=== PATIENT | female | born 1985 | race Caucasian/White ===

== ENCOUNTER 2017-12-07 20:20 | Emergency (ER) | payer MEDICAID | END 2017-12-07 21:09 | disposition home or self-care (01) | LOC: FTE 20:20 | DX: J00 Acute nasopharyngitis [common cold] (principal) | CPT/HCPCS: 99283; Z7502 ==

== ENCOUNTER 2017-12-28 12:41 | Emergency (ER) | payer MEDICAID ==
[2017-12-28] MEDS: SOD CHLORIDE 0.9% 1,000 ML IV (15:46)
[2017-12-28] MEDS: ACETAMINOPHEN 325 MG TAB PO (15:46)
[2017-12-28] MEDS: METOCLOPRAMIDE 10 MG INJ IV (15:46)
[2017-12-28 16:07] LABS: ADD MAN DIFF? NO
[2017-12-28 16:14] LABS: WHITE BLOOD COUNT 8.3 10^3/ul (4.8-10.8)
[2017-12-28 16:14] LABS: BASOPHILS % 0.2 % (0.0-2.0); EOSINOPHILS # 0.1 10^3/ul (0.0-0.5); EOSINOPHILS % 1.2 % (0.0-7.0); HEMATOCRIT 37.1 % (37.0-47.0); HEMOGLOBIN 11.4 g/dl (12.0-16.0); LYMPHOCYTES # 1.4 10^3/ul (0.8-2.9); LYMPHOCYTES % 16.3 % (15.0-51.0); MEAN CORPUSCULAR HEMOGLOBIN 24.5 pg (29.0-33.0); MEAN CORPUSCULAR HGB CONC 30.7 g/dl (32.0-37.0); MEAN CORPUSCULAR VOLUME 79.8 fl (82.0-101.0); MEAN PLATELET VOLUME 10.4 fl (7.4-10.4); MONOCYTE # 0.8 10^3/ul (0.3-0.9); MONOCYTES % 9.3 % (0.0-11.0); NEUTROPHILS % 72.4 % (39.0-77.0); PLATELET COUNT 273 10^3/UL (140-415); RED BLOOD COUNT 4.65 10^6/ul (4.20-5.40); RED CELL DISTRIBUTION WIDTH 15.3 % (11.5-14.5)
[2017-12-28 16:39] LABS: ALANINE AMINOTRANSFERASE 22 IU/L (13-69); ALBUMIN 3.9 g/dl (3.3-4.9); ALBUMIN/GLOBULIN RATIO 0.92; ALKALINE PHOSPHATASE 64 IU/L (42-121); ANION GAP 15 (8-16); ASPARTATE AMINO TRANSFERASE 20 IU/L (15-46); BILIRUBIN,INDIRECT 0.2 mg/dl (0-1.1); BILIRUBIN,TOTAL 0.2 mg/dl (0.2-1.3); BLOOD UREA NITROGEN 8 mg/dl (7-20); CALCIUM 9.7 mg/dl (8.4-10.2); CARBON DIOXIDE 24 mmol/L (21-31); CHLORIDE 104 mmol/L (97-110); CREATININE 0.54 mg/dl (0.44-1.00); GLUCOSE 90 mg/dl (70-220); POTASSIUM 3.9 mmol/L (3.5-5.1); SODIUM 139 mmol/L (135-144); TOTAL PROTEIN 8.1 g/dl (6.1-8.1)
[2017-12-28 16:46] LABS: ADD UMIC NO; UR ASCORBIC ACID 40 mg/dL (NEGATIVE); UR BACTERIA FEW /HPF (NONE SEEN); UR BILIRUBIN (Dip) NEGATIVE (NEGATIVE); UR BLOOD (Dip) NEGATIVE (NEGATIVE); UR CLARITY SLIGHTLY CLOUDY (CLEAR); UR COLOR YELLOW (YELLOW); UR GLUCOSE (Dip) NEGATIVE (NEGATIVE); UR KETONES (Dip) 1+ mg/dL (NEGATIVE); UR LEUKOCYTE ESTERASE (Dip) NEGATIVE Leu/ul (NEGATIVE); UR MUCUS FEW /HPF (NONE SEEN); UR NITRITE (Dip) NEGATIVE (NEGATIVE); UR RBC 1 /HPF (0-5); UR SPECIFIC GRAVITY (Dip) 1.025 (1.003-1.030); UR SQUAMOUS EPITHELIAL CELL FEW /HPF (FEW); UR TOTAL PROTEIN (Dip) NEGATIVE (NEGATIVE); UR UROBILINOGEN (Dip) NEGATIVE (NEGATIVE); UR WBC 1 /HPF (0-5)
[2017-12-28] MEDS: ONDANSETRON (ODT) 4 MG TAB ODT (18:29)
== END 2017-12-28 18:43 | disposition home or self-care (01) ==
LOC: FTE 12:41
DX: O21.0 Mild hyperemesis gravidarum (principal); Z3A.09 9 weeks gestation of pregnancy
CPT/HCPCS: 36415; 76801; 80053; 81001; 81003; 84702; 85025; 96361; 96374; 99285-25

== ENCOUNTER 2018-05-14 22:06 | Outpatient (CLI) | payer MEDICAID ==
[2018-05-15 00:13] LABS: ADD UMIC NO; UR ASCORBIC ACID NEGATIVE (NEGATIVE); UR BILIRUBIN (Dip) NEGATIVE (NEGATIVE); UR BLOOD (Dip) NEGATIVE (NEGATIVE); UR CLARITY CLEAR (CLEAR); UR COLOR STRAW (YELLOW); UR GLUCOSE (Dip) NEGATIVE (NEGATIVE); UR KETONES (Dip) NEGATIVE (NEGATIVE); UR LEUKOCYTE ESTERASE (Dip) NEGATIVE Leu/ul (NEGATIVE); UR NITRITE (Dip) NEGATIVE (NEGATIVE); UR SPECIFIC GRAVITY (Dip) 1.003 (1.003-1.030); UR TOTAL PROTEIN (Dip) NEGATIVE (NEGATIVE); UR UROBILINOGEN (Dip) NEGATIVE (NEGATIVE)
[2018-05-15 00:29] LABS: RUPTURE FETAL MEMBRANES NEGATIVE (NEGATIVE)
== END 2018-05-15 01:43 | disposition home or self-care (01) ==
LOC: OBT 22:06 → L-D 22:08
DX: O26.893 Other specified pregnancy related conditions, third trimester (principal); Z3A.29 29 weeks gestation of pregnancy; R10.2 Pelvic and perineal pain
CPT/HCPCS: 76815; 76817; 76818; 81003; 82731; 84112

== ENCOUNTER 2018-07-03 23:40 | Outpatient (CLI) | payer MEDICAID ==
[2018-07-04] MEDS: TERBUTALINE 1 MG/ML INJ SC (00:49)
[2018-07-04] MEDS: LACTATED RINGER'S 1,000 ML IV* (00:58)
== END 2018-07-04 03:00 | disposition home or self-care (01) ==
LOC: OBT 23:40 → L-D 23:43
DX: O26.893 Other specified pregnancy related conditions, third trimester (principal); R10.2 Pelvic and perineal pain; Z3A.36 36 weeks gestation of pregnancy
CPT/HCPCS: 36415; 76818; 96360; 96372

== ENCOUNTER 2018-07-21 07:18 | Inpatient (IN) | payer MEDICAID ==
[2018-07-21] MEDS ORDERED: OXYTOCIN 30 UNITS/LR 500 ML IV ×3 (08:00→15:30)
[2018-07-21] MEDS ORDERED: MISOPROSTOL 200 MCG TAB PR ×2 (08:00→15:30)
[2018-07-21] MEDS ORDERED: METHYLERGONOVINE 0.2 MG INJ IM ×2 (08:00→15:30)
[2018-07-21] MEDS ORDERED: CARBOPROST 250 MCG INJ IM ×2 (08:00→15:30)
[2018-07-21 08:26] LABS: ADD MAN DIFF? NO
[2018-07-21] MEDS: LACTATED RINGER'S 1,000 ML IV ×2 (08:31→09:19)
[2018-07-21 08:36] LABS: BASOPHILS % 0.4 % (0.0-2.0); EOSINOPHILS # 0.1 10^3/ul (0.0-0.5); EOSINOPHILS % 1.1 % (0.0-7.0); HEMATOCRIT 31.7 % (37.0-47.0); HEMOGLOBIN 9.5 g/dl (12.0-16.0); LYMPHOCYTES # 1.3 10^3/ul (0.8-2.9); LYMPHOCYTES % 17.6 % (15.0-51.0); MEAN CORPUSCULAR HEMOGLOBIN 23.2 pg (29.0-33.0); MEAN CORPUSCULAR VOLUME 77.3 fl (82.0-101.0); MEAN PLATELET VOLUME 11.3 fl (7.4-10.4); MONOCYTE # 0.6 10^3/ul (0.3-0.9); MONOCYTES % 8.1 % (0.0-11.0); NEUTROPHIL # 5.3 10^3/ul (1.6-7.5); NEUTROPHILS % 72.2 % (39.0-77.0); PLATELET COUNT 218 10^3/UL (140-415); RED CELL DISTRIBUTION WIDTH 16.1 % (11.5-14.5)
[2018-07-21 08:36] LABS: WHITE BLOOD COUNT 7.3 10^3/ul (4.8-10.8)
[2018-07-21 09:00] LABS: PARTIAL THROMBOPLASTIN TIME 35.4 Sec (23.0-35.0); PROTIME 14.3 Sec (11.9-14.9); PT RATIO 1.1
[2018-07-21] MEDS ORDERED: OXYTOCIN 10 UNIT INJ (09:10)
[2018-07-21] MEDS ORDERED: morphine SULFATE/PF (10 MG/10 ML) INJ (09:10)
[2018-07-21] MEDS ORDERED: EPINEPHrine 1 MG INJ (09:10)
[2018-07-21 09:27] LABS: HEPATITIS B SURFACE ANTIGEN NEGATIVE (NEGATIVE)
[2018-07-21] MEDS ORDERED: CITRIC ACID/NA CITRATE 30 ML CUP (09:29)
[2018-07-21] MEDS ORDERED: HYDROmorphONE 1 MG/5 ML IV SYRINGE IV ×3 (09:30)
[2018-07-21] MEDS ORDERED: ONDANSETRON 4 MG INJ (09:30)
[2018-07-21] MEDS ORDERED: FAMOTIDINE 20 MG INJ (09:30)
[2018-07-21] MEDS ORDERED: DIPHENHYDRAMINE 50 MG INJ IV (09:30)
[2018-07-21] MEDS ORDERED: FENTAnyl 50 MCG/ML VIAL IV ×2 (09:30)
[2018-07-21] MEDS ORDERED: ZOLPIDEM 5 MG TAB PO (09:30)
[2018-07-21] MEDS ORDERED: METOCLOPRAMIDE 10 MG INJ (09:30)
[2018-07-21] MEDS ORDERED: ONDANSETRON 4 MG INJ IV ×2 (09:30)
[2018-07-21] MEDS ORDERED: NALOXONE (0.4 MG/ML) INJ IV (09:30)
[2018-07-21] MEDS ORDERED: HYDROmorphONE 0.5 MG/0.5 ML SYG IV ×2 (09:30)
[2018-07-21] MEDS ORDERED: KETOROLAC 30 MG INJ IV (09:30)
[2018-07-21] MEDS: FAMOTIDINE 20 MG INJ IV (09:36)
[2018-07-21] MEDS: GENTAMICIN 80 MG/NS (PMX) 50 ML IVPB (09:47)
[2018-07-21] MEDS: OXYTOCIN 30 UNITS/LR 500 ML IV ×2 (11:31→15:37)
[2018-07-21] MEDS: CLINDAMYCIN 900 MG/D5W (PMX) 50 ML IVPB (12:32)
[2018-07-21] MEDS: CITRIC ACID/NA CITRATE 30 ML CUP PO (12:33)
[2018-07-21] MEDS: METOCLOPRAMIDE 10 MG INJ IV (12:33)
[2018-07-21] MEDS: ONDANSETRON 4 MG INJ IV (12:33)
[2018-07-21] MEDS: DEXTROSE 5%-LR 1,000 ML IV (15:14)
[2018-07-21] MEDS ORDERED: LANOLIN HPA 1 PKT TOP (15:30)
[2018-07-21] MEDS ORDERED: METHYLERGONOVINE 0.2 MG TAB PO (15:30)
[2018-07-21] MEDS ORDERED: MAGNESIUM HYDROXIDE 30ML CUP PO (15:30)
[2018-07-21 15:43] LABS: RAPID PLASMA REAGIN NONREACTIVE (NR)
[2018-07-21] MEDS: KETOROLAC 30 MG INJ IV (18:09)
[2018-07-21] MEDS ORDERED: PETROLATUM 5 GM OINT TOP (19:45)
[2018-07-21] MEDS: SENNA/DOCUSATE NA (8.6MG/50MG) TAB PO (21:00)
[2018-07-22] MEDS: KETOROLAC 30 MG INJ IV ×2 (01:20→07:35)
[2018-07-22] MEDS: DEXTROSE 5%-LR 1,000 ML IV ×2 (01:20→08:24)
[2018-07-22] MEDS: DIPHENHYDRAMINE 50 MG INJ IV (02:35)
[2018-07-22 08:37] LABS: ADD MAN DIFF? NO
[2018-07-22 08:39] LABS: BASOPHILS % 0.4 % (0.0-2.0); EOSINOPHILS % 0.2 % (0.0-7.0); HEMATOCRIT 30.9 % (37.0-47.0); HEMOGLOBIN 9.4 g/dl (12.0-16.0); LYMPHOCYTES # 0.8 10^3/ul (0.8-2.9); LYMPHOCYTES % 10.2 % (15.0-51.0); MEAN CORPUSCULAR HEMOGLOBIN 22.9 pg (29.0-33.0); MEAN CORPUSCULAR HGB CONC 30.4 g/dl (32.0-37.0); MEAN CORPUSCULAR VOLUME 75.4 fl (82.0-101.0); MEAN PLATELET VOLUME 11.4 fl (7.4-10.4); MONOCYTE # 0.4 10^3/ul (0.3-0.9); MONOCYTES % 5.2 % (0.0-11.0); NEUTROPHIL # 6.7 10^3/ul (1.6-7.5); NEUTROPHILS % 83.5 % (39.0-77.0); PLATELET COUNT 198 10^3/UL (140-415); RED CELL DISTRIBUTION WIDTH 16.4 % (11.5-14.5)
[2018-07-22 08:39] LABS: WHITE BLOOD COUNT 8.1 10^3/ul (4.8-10.8)
[2018-07-22] MEDS: SENNA/DOCUSATE NA (8.6MG/50MG) TAB PO ×2 (09:44→20:46)
[2018-07-22] MEDS ORDERED: HYDROCODONE/APAP (5/325) TAB NGT (11:00)
[2018-07-22] MEDS ORDERED: DIPHTH/TET/ACEL PERTUSS (ADULT) 0.5 ML VIAL IM* (11:00)
[2018-07-22] MEDS: IBUPROFEN 800 MG TAB PO ×2 (13:48→22:30)
[2018-07-22] MEDS: HYDROCODONE/APAP (5/325) TAB PO ×3 (13:49→22:30)
[2018-07-22] MEDS ORDERED: HYDROCODONE/APAP (5/325) TAB GTB (14:00)
[2018-07-22] MEDS: DIPHENHYDRAMINE 25 MG CAP PO (17:05)
[2018-07-23] MEDS: IBUPROFEN 800 MG TAB PO ×3 (06:04→21:53)
[2018-07-23] MEDS: HYDROCODONE/APAP (5/325) TAB PO ×4 (06:06→21:04)
[2018-07-23] MEDS: SENNA/DOCUSATE NA (8.6MG/50MG) TAB PO ×2 (10:06→21:03)
[2018-07-24] MEDS: HYDROCODONE/APAP (5/325) TAB PO ×3 (02:00→18:25)
[2018-07-24] MEDS: IBUPROFEN 800 MG TAB PO ×2 (05:46→14:19)
[2018-07-24] MEDS ORDERED: MEASLES,MUMPS,RUBELLA VACCINE INJ SC* (09:00)
[2018-07-24] MEDS: SENNA/DOCUSATE NA (8.6MG/50MG) TAB PO (09:00)
[2018-07-24] MEDS: DIPHTH/TET/ACEL PERTUSS (ADULT) 0.5 ML VIAL IM* (10:46)
== END 2018-07-24 19:30 | disposition home or self-care (01) | DRG 785 ==
LOC: L-D 07:18 → PP1 14:15
PROVIDERS: Obstetrics & Gynecology
PROC: 10D00Z1 Extraction of Products of Conception, Low, Open Approach (ICD-10-PCS; principal; 2018-07-21 09:00)
PROC: 0UB70ZZ Excision of Bilateral Fallopian Tubes, Open Approach (ICD-10-PCS; 2018-07-21 09:00)
DX: O34.219 Maternal care for unspecified type scar from previous cesarean delivery (principal); O99.02 Anemia complicating childbirth; D64.9 Anemia, unspecified; Z3A.39 39 weeks gestation of pregnancy; Z37.0 Single live birth; Z30.2 Encounter for sterilization; Z23 Encounter for immunization
CPT/HCPCS: 85025; 85610; 85730; 86592; 86850; 86900; 86901; 87340; 88302; 90715; 99464